=== PATIENT | female | born 1940 | race Asian ===

== ENCOUNTER 2024-10-16 00:39 | Emergency (ER) | payer OTHER ==
[~2024-10-16] VITALS: Ht 142.2 cm; Wt 39.5 kg
[2024-10-16] MEDS ORDERED: EPINEPHrine 1:10,000 [1 MG/10 ML] SYRINGE IVP ONE (00:40)
[2024-10-16] MEDS ORDERED: DEXTROSE 50%-WATER 25 GM/50 ML SYRINGE IVP ONE (00:40)
[2024-10-16 00:55] VITALS: BP 0/0; PULSE 0; RESP 20; TEMP 94; O2SAT 0
== END 2024-10-16 04:35 ==
LOC: EMS 00:39
DX: I46.9 Cardiac arrest, cause unspecified (principal)
CPT/HCPCS: 92950; 99285; J0171